=== PATIENT | female | born 2005 | race Caucasian/White ===

== ENCOUNTER 2024-01-10 07:24 | Day surgery (SDC) | payer OTHER ==
[~2024-01-10] VITALS: Ht 157.5 cm; Wt 51.7 kg
[~2024-01-10 07:24] MED LIST: CLIN1LOT; KETO2SHA8; NORG1TAB33 PO; PANT40TA29 PO; SPIR50TA4 PO
[2024-01-10] MEDS ORDERED: LIDOCAINE 2% 100MG/5ML SDV (FOR ANES.) As Ordered ONE (08:46)
[2024-01-10] MEDS ORDERED: SUGAMMADEX SODIUM 500 MG/5 ML VIAL (BRIDION) As Ordered ONE (08:46)
[2024-01-10] MEDS ORDERED: propofoL 200 MG/20 ML VIAL As Ordered ONE (08:46)
[2024-01-10] MEDS ORDERED: ONDANSETRON 4MG 2ML VIAL As Ordered ONE (08:46)
[2024-01-10] MEDS ORDERED: ROCURONIUM BROMIDE 50MG/5ML VIAL As Ordered ONE (08:46)
[2024-01-10] MEDS: LR 1,000 ML IV SCH (09:01)
[2024-01-10] MEDS ORDERED: fentaNYL 100 MCG/2 ML INJECTION As Ordered ONE (09:36)
[2024-01-10] MEDS ORDERED: MIDAZOLAM INJ 2MG/2ML VIAL As Ordered ONE (09:36)
[2024-01-10] MEDS: LIDOCAINE W/EPINEPHRINE 1% 20ML VIAL As Ordered ONE (10:12)
[2024-01-10] MEDS ORDERED: ACETAMINOPHEN 1000MG 100ML IV BAG As Ordered ONE (10:15)
[2024-01-10] MEDS ORDERED: MORPHINE 2 MG/ML 1ML VIAL IV PRN (10:55)
[2024-01-10] MEDS: ONDANSETRON 4MG 2ML VIAL IV PRN (11:14)
[2024-01-10] MEDS: oxyCODONE 5MG TAB PO PRN (11:14)
[2024-01-10] MEDS: fentaNYL 100 MCG/2 ML INJECTION IV PRN (11:15)
[2024-01-10 11:58] VITALS: BP 126/83; TEMP 98.3; O2SAT 99
== END 2024-01-10 12:26 | disposition home or self-care (01) ==
LOC: M SDC 07:24
PROVIDERS: ATTEND Dentist Oral and Maxillofacial Surgery
DX: K02.9 Dental caries, unspecified (principal); Z88.8 Allergy status to other drugs, medicaments and biological substances; Z92.21 Personal history of antineoplastic chemotherapy; Z79.899 Other long term (current) drug therapy
CPT/HCPCS: 81025; 88300; D7210; D9223; J0131; J1100; J2250; J2405; J3010